=== PATIENT | male | born 2000 | race Caucasian/White ===

== ENCOUNTER 2021-09-24 16:20 | Emergency (ER) | payer BC ==
[~2021-09-24] VITALS: Ht 180.3 cm; Wt 66.7 kg
[~2021-09-24 16:20] MED LIST: DEXM2.5T PO
[2021-09-24] MEDS ORDERED: AMOX-430 PO (16:49)
[2021-09-24] MEDS: NEOMY/BACITRA/POLYMYXIN B OINT UD PACKET TP ONE (16:56)
[2021-09-24] MEDS: IBUPROFEN 600 MG TABLET PO ONE (16:56)
[2021-09-24] MEDS ORDERED: IBUPROFEN 600 MG TABLET ONE (17:01)
[2021-09-24] MEDS ORDERED: NEOMY/BACITRA/POLYMYXIN B OINT UD PACKET TP ONE (17:01)
--- NOTE | 2021-09-24 17:01 | NUR ---
Patient discharged to home in stable condition. Written and verbal after care instructions given. Patient verbalizes understanding of instructions. Stressed follow up or return to ER for worsening s/s.
== END 2021-09-24 17:01 | disposition home or self-care (01) ==
LOC: ER 16:25
DX: S51.852A Open bite of left forearm, initial encounter (principal); Z79.899 Other long term (current) drug therapy; W54.0XXA Bitten by dog, initial encounter; Y93.89 Activity, other specified; Y92.89 Other specified places as the place of occurrence of the external cause; Y99.8 Other external cause status
CPT/HCPCS: A4663